=== PATIENT | male | born 1960 | race Caucasian/White ===

== ENCOUNTER → 2020-03-28 15:39 | Outpatient (CLI) | payer SELFPAY ==
--- NOTE | ~2020-03-28 | US_ITS ---
EXAMINATION: US renal BI EXAM DATE: 03/28/2020 16:23 INDICATION: Proteinuria. TECHNIQUE: Multiple grayscale and Doppler images of the kidneys were obtained (by a technologist who performed the scan) and subsequently reviewed. There is no prior study for comparison. FINDINGS: Right kidney: There is normal contour and echogenicity. It measures 10.0 x 5.9 x 6.7 centimeters. T here are no focal renal lesions identified. There is no hydronephrosis. Left kidney: There is normal contour and echogenicity. It measures 11.1 x 6.3 x 5.0 centimeters. Th ere are no focal renal lesions identified. There is no hydronephrosis. Bladder unremarkable. IMPRESSION: Sonographically unremarkable kidneys. Reviewed, dictated and finalized at location B. RACT ADMINISTRATION COORDINATOR
== END ==
DX: I12.9 Hypertensive chronic kidney disease with stage 1 through stage 4 chronic kidney disease, or unspecified chronic kidney disease (principal); N18.31 Chronic kidney disease, stage 3a; R80.9 Proteinuria, unspecified; N20.0 Calculus of kidney
CPT/HCPCS: 76775

== ENCOUNTER 2020-07-31 07:51 | Outpatient (CLI) | payer SELFPAY ==
--- NOTE | 2020-07-31 08:00 | ECG_ITS ---
Measurements Intervals [place] Rate: 53 P: 26 MN: 194 QRS: -13 QRSD: 122 T: -3 QT: 398 QTc: 376 Interpretive Statements SINUS BRADYCARDIA INTRAVENTRICULAR CONDUCTION DELAY VOLTAGE CRITERIA FOR LVH BORDERLINE R WAVE PROGRESSION, ANTERIOR LEADS BORDERLINE T WAVE ABNORMALITY- INFERIOR LEADS BORDERLINE ECG Electronically Signed On 07-31-2020 8:23:12 CDT by [place] D.O.
== END 2020-07-31 07:52 | disposition home or self-care (01) ==
LOC: ANHSURGERY 07:55
PROVIDERS: PCP Internal Medicine Endocrinology, Diabetes & Metabolism; Visit Provider Orthopaedic Surgery
DX: Z01.818 Encounter for other preprocedural examination (principal); I10 Essential (primary) hypertension; I45.9 Conduction disorder, unspecified
CPT/HCPCS: 93005

== ENCOUNTER → 2020-08-02 08:12 | Outpatient (CLI) | payer OTHER, SELFPAY ==
[2020-08-02 19:22] LABS: SARS-CoV-2 RNA PCR Negative
== END ==
PROVIDERS: PCP Internal Medicine Endocrinology, Diabetes & Metabolism; Visit Provider Orthopaedic Surgery
DX: Z01.812 Encounter for preprocedural laboratory examination (principal); Z20.822 Contact with and (suspected) exposure to COVID-19
CPT/HCPCS: C9803; U0003; U0005

== ENCOUNTER 2020-08-05 00:35 | Day surgery (SDC) | payer SELFPAY ==
[2020-07-24 09:51] VITALS: BMI 29.0
[2020-08-05] VITALS (9 sets, daily range): BP systolic 140–186; BP diastolic 74–103; PULSE 47–92; RESP 16–21; TEMP 36.3–37.4; O2SAT 95–100
[2020-08-05] MEDS: LACTATED RINGERS 1,000 ML 30 ML IV CONT ×2 (09:26→11:53)
[2020-08-05] MEDS: ACETAMINOPHEN 500 MG TABLET 1000 MG PO (09:27)
[2020-08-05] MEDS: KETOROLAC 15 MG/ML VIAL (*BKC) IV PUSH (09:29)
--- NOTE | 2020-08-05 09:30 | P.PNAN_ITS ---
Anes - Initial Pre Proc Eval Procedure: Operation Date: 08/05/20 10:30 Proposed Procedures p Left Rotator Cuff Repair with Distal Clavicle Excision - Missael Al MD Date/Time: 08/05/20 09:30 Surgeon: Missael Al MD Pre Op Diagnosis: left rotator cuff pain and AC arthritis Patient Data Age: 59 Gender: M Height: 1.7 m Weight: 84.1 kg Last Vital Signs Temp 36.3 C L 08/05/20 08:57 Pulse 47 L 08/05/20 08:57 Resp 16 08/05/20 08:57 BP 157/76 H 08/05/20 08:57 Pulse Ox 100 08/05/20 08:57 Allergies Allergy/AdvReac Type Severity Reaction Status Date / Time No Known Allergies Allergy Verified 08/05/20 09:04 Home Medications Medication Instructions Recorded Confirmed Type amlodipine 10 mg-benazepril 40 mg 1 cap PO DAILY 07/23/20 08/05/20 History capsule metoprolol succinate 50 mg 50 mg PO DAILY 07/23/20 08/05/20 History tablet,extended release 24 hr Adults Multivitamin 1 tab-cap PO DAILY 07/24/20 08/05/20 History Patient hx anesthesia problems: none Family hx anesthesia problems: none PMFSH Past Medical History Medical History Arthritis of left acromioclavicular joint Gout Hypertension Left rotator cuff tear Surgical History Surgical History (Updated 08/05/20 @ 08:12 by Nikita Wei DO) History of appendectomy History of hand surgery 2013 excision lesion right index finger History of left tennis elbow 2010 debridement History of lithotripsy S/P arthroscopy of right shoulder open DCE 2013 Family History Family History Father Diabetes mellitus Mother Kidney disease Social History Social History Smoking status: Never smoker Alcohol intake: never Living arrangements: with family Additional living arrangements comments: Additional occupation/education comments: Self/[employer] Gender identity (if verbalized by the patient): Male Spiritual care concerns: No Anes - Eval Final PreProcedure Day of Procedure 08/05/20 09:30 Patient weight: overweight Heart: regular rate and rhythm Lungs: clear to auscultation and normal air movement Airway: Mallampati scale class III Neurological: alert and oriented Last oral intake: >/= 8 hours ASA classification: II Emergent: no Anesthetic plan: proceed Anesthesia type and monitoring: general ETT and standard monitoring Informed Consent: The patient's anesthetic plan and its attendant risks and benefits were discussed with the patient/family/POA. Questions were solicited and answers provided to the satisfaction of the patient/family/POA.
--- NOTE | 2020-08-05 09:36 | PM.PROC ---
Procedure Note - Detailed Date of procedure: 08/05/20 Pre-op diagnosis: left rotator cuff pain and AC arthritis Left rotator cuff tear with AC joint arthritis Post-op diagnosis: same Procedure performed: Left shoulder rotator cuff repair with distal clavicle excision Description of procedure: Patient was identified and proper site identified. In the preop holding area the anesthesia team performed a left upper extremity block. He was then taken to the operating room and transferred to the or table taking care to pad the torso and extremities. After general anesthetic induction and intubation, he was put in a semi beach chair position in the usual manner for a left shoulder procedure. His head was secured taking care to neither rotate nor extend the head and neck. The left upper extremity was prepped and draped free in usual sterile fashion. The subcutaneous tissue in the area of the incision was injected with 10 cc of 0.25% Marcaine and epinephrine solution. An oblique anterior incision was made extending from the AC joint distally in line with the fibers of the deltoid. Subcutaneous tissue was sharply dissected down to the deltoid fascia. The deltoid was dissected off the anterior portion of the acromion in the distal end of the clavicle. A 2 cm split was made at the junction between the anterior and middle thirds of the deltoid. Using the microsagittal saw the last 8 mm of clavicle removed. The saw was also used to perform the acromioplasty and then the undersurface of the acromion was rasped smooth. Thickened bursa was debrided off the rotator cuff. The anterior most portion of the supraspinatus was extremely thin. This was released from the tuberosity, the tuberosity prepared for the repair and then through a bone tunnel the rotator cuff was repaired back to the greater tuberosity with 2. Ethibond suture. This gave a freire repair which was stable as the shoulder was taken through range of motion. The wound was irrigated with sterile NaCl solution. The deltoid was repaired back to the acromion with 2. Ethibond suture passed through bone and the remainder of the deltoid repair carried out with 2. Vicryl. Subcutaneous tissue was reapproximated with 2. Strata fix and then tissue adhesive used for the skin. Sterile dressing was applied. There were no known intraoperative complications, and perioperative antibiotics were administered. Anesthesia: GETA and regional Surgeon: Missael Al MD [facility] Owner: Julissa Holguin Estimated blood loss (mL): 20 Drains: No Packing: No Pathology: none sent Complications: No immediate complications Condition: stable Disposition: PACU
--- NOTE | 2020-08-05 09:37 | WPDHPUPDATE1 ---
History and Physical Update Update Date/Time: 08/05/20 09:37 History and Physical has been reviewed, including an updated exam of the patient. There are NO changes in the patient's condition. Risks, benefits, and alternatives have been discussed and questions answered. Patient agrees to proceed with procedure.
--- NOTE | 2020-08-05 09:48 | WPDANESPNB ---
Anes - Peripheral Nerve Block Date/Time: 08/05/20 09:48 I have discussed with the patient/family/POA the placement of a peripheral nerve block for post-operative pain management, including associated risks, benefits, complications, and side effects. Alternative methods of post-operative analgesia were detailed. Questions were solicited and answers provided to the satisfaction of the patient/family/POA. Time-Out: A pre-procedural Time-Out was completed immediately before starting the procedure and confirmed: Patient Identification, Site, Procedure, Patient Position and the Availability of Requisite Equipment. Clinical Indications: Acute post-operative pain management requested by the operative surgeon. Nerve Block Insertion Note Anes-nerve block: interscalene left Patient position: supine Skin prep: chlorhexidine Needle: 22 gauge, stimulating, insulated echogenic needle. Needle length: 50 mm Technique: ultrasound Injectate: bupivacaine 0.5% with epi 5 mcg/ml (30cc- no epi) Observations: tolerated well Complications: none Procedure start time:: 1025 Procedure end time:: 102
[2020-08-05] MEDS: ceFAZolin 2 GM/D5W 50 ML 2 GM/50 ML BAG IVPB (10:31)
[2020-08-05] MEDS: BUPIVACAINE/EPINEPHRINE 0.25% 10 ML VIAL INFILTRATE (11:03)
== END 2020-08-05 13:40 | disposition home or self-care (01) ==
PROVIDERS: PCP Internal Medicine Endocrinology, Diabetes & Metabolism; Visit Provider Orthopaedic Surgery
PROC: (CPT 23420; principal; 2020-08-05 10:30)
DX: M75.112 Incomplete rotator cuff tear or rupture of left shoulder, not specified as traumatic (principal); M19.012 Primary osteoarthritis, left shoulder; G89.18 Other acute postprocedural pain; I10 Essential (primary) hypertension
CPT/HCPCS: 23420; 23120; 64415; A4565; A9270; J0330; J0690; J1100; J1885; J2250; J2405; J2704; J3010; J7120

== ENCOUNTER 2020-11-01 08:30 | Outpatient (RCR) | payer SELFPAY ==
[2020-08-07 07:33] VITALS: BP_SYST 35
--- NOTE | 2020-08-07 08:39 | PTOPEVAL ---
Thank you for referring Pola Leyva to [facility].? The patient is scheduled to be seen for therapy? 1-2 x/week for 12 weeks. Please review, sign, date and return this plan of care POLLO. I agree with and certify that the following plan of care is medically necessary. 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 Family He reports limitations with all daily activities, ADL's, and use of left UE. Reports difficulty sleeping due to pain. Sleeping in the recliner. He requires assistance with ADL's. He is not driving. Recreational activities: ride motorcycles, play with grandkids. Previous Treatments Previous Treatments For This Problem no Pain Assessment Self Report Pain Assessment Left Shoulder(s) Reported Pain Level 4 Pain Description Aching,Incisional,Soreness Pain Frequency Acute,Continuous Lowest Pain Intensity 3 Greatest Pain Intensity 7 Pain Aggravating Factors ADL's,Exercise/Activity, Lifting Pain Behaviors None Upper Extremity Range of Motion General Upper Extremity Range of Motion Gross Upper Extremity Range of Motion left elbow ROM: WNL Comments Scapular/ Shoulder Range of Motion Left Shoulder Flexion - Passive 70 Shoulder Extension - Passive 0 Shoulder Abduction - Passive 35 Shoulder Medial Rotation - Passive 30 Shoulder Lateral Rotation - Passive 0 Scapular/Shoulder Range of Motion Pain,Soft Tissue Restriction Scapular/Shoulder Range of Motion rotation measured with UE at side Upper Extremity Muscle Strength Testing Gross Upper Extremity Strength Comments left shoulder NT due to surgery left elbow: 3/5 Scapular/Shoulder Left Scapular Retraction - Rhomboid 3- Fair - Scapular Retraction - Middle Trapezius 3- Fair - Muscle Length Testing Pectoralis Major Muscle Length (R) Moderate Tightness,(L) Moderate Tightness Pectoralis Minor Muscle Length (R) Severe Tightness,(L) Severe Tightness Posture Sitting Position Head/C-Spine Posture
[2020-09-10 07:35] VITALS: BP_SYST 140
--- NOTE | 2020-09-24 08:37 | PCPTNOTE ---
Patient called & cancelled scheduled appointment this date due to having to work.
--- NOTE | 2020-10-01 15:20 | PCPTNOTE ---
Patient called & cancelled scheduled appointment this date due to having to work.
--- NOTE | 2020-10-22 07:36 | PCPTNOTE ---
Patient called & cancelled scheduled appointment this date due to called into work.
[2020-11-01 08:25] VITALS: BP_SYST 130
--- NOTE | 2020-11-01 09:42 | PTOPEVAL ---
Progress Note Thank you for referring Pola Leyva to [facility].? He has attended 12 therapy visits with 3 cancelled visits with last visit on 10/08/20 due to his schedule. See summary below for progress and limitations. He requires additional skilled therapy services to address limitations. The patient is scheduled to be seen for therapy? 2x/week for 3 weeks. Please review, sign, date and return this plan of care POLLO. I agree with and certify that the following plan of care is medically necessary. 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 Family He is working without limitations. He cont to have trouble reaching behind his back. He is performing his HEP inconsistently 1x/day. Denies problems with lifting or reaching overhead. Pain Assessment Left Shoulder(s) Reported Pain Level 0 Pain Description Aching Pain Frequency Intermittent Lowest Pain Intensity 0 Greatest Pain Intensity 3 Upper Extremity Range of Motion Scapular/ Shoulder Range of Motion Left Scapular: Retraction Hypomobile Scapular: Protraction Hypomobile Scapular Downward Rotation Hypomobile Scapular Upward Rotation Hypomobile Shoulder Flexion - Active 128 Shoulder Flexion - Passive 140 Shoulder Extension - Active 45 Shoulder Abduction - Active 115 Shoulder Abduction - Passive 130 Shoulder Medial Rotation - Active 22 Shoulder Medial Rotation - Active iliac crest:Reach Behind the Back Shoulder Lateral Rotation - Active 45 Shoulder Lateral Rotation - Active C3:Reach Behind the Head Scapular/Shoulder Range of Motion Muscle Length Restriction,Pain Limitations ,Soft Tissue Restriction Scapular/Shoulder Range of Motion rotation measured with UE Comments abducted 75 dg poor GH inf glide, poor scapulothoracic movement with reaching task Upper Extremity Muscle Strength Testing Scapular/Shoulder Left Scapular Retraction - Middle Trapezius 3+ Fair + Scapular Retraction - Lower Trapezius 3 Fair Shoulder Flexion Strength 3+ Fair + Shoulder Extension Strength 4+ Good +
--- NOTE | 2020-11-04 14:04 | PCPTNOTE ---
This treatment is being continued on visit number 13 to new [id number]. Please see documentation on both accounts to view progress. Completed interventions, outcomes, and problems have been marked as Inactive to facilitate the copying of the Care plan routine for recurring accounts.
== END 2020-11-04 13:07 | disposition home or self-care (01) ==
LOC: ANHPT 08:30
PROVIDERS: PCP Internal Medicine Endocrinology, Diabetes & Metabolism; Visit Provider Orthopaedic Surgery
DX: Z48.89 Encounter for other specified surgical aftercare (principal)
CPT/HCPCS: 97014; 97035; 97110; 97140; 97161; G0283

== ENCOUNTER 2020-11-08 15:00 | Outpatient (RCR) | payer SELFPAY ==
[2020-11-04 13:08] VITALS: BP_SYST 130
--- NOTE | 2020-11-04 14:04 | PCPTNOTE ---
The treatment documented on this account is a continuation of the treatment documented on visit number 13 from [id number]. Please see documentation on both accounts to view progress. The Plan of Care has been transitioned and updated within the new V#. I have addressed and agree with the discipline specific Problems, Interventions, and Goals for the current certification period. Completed interventions, outcomes, and problems have been marked as Inactive to facilitate the copying of the Care plan routine for recurring accounts.
--- NOTE | 2020-11-21 08:58 | PCPTNOTE ---
Spoke with pt who had a f/u MD visit. MD recommended DC PT and cont with HEP. Will plan to DC skilled therapy services at this time.
--- NOTE | 2020-11-21 12:51 | PCPTNOTE ---
Admitting Provider: Attending Provider: Missael Al MD Patient:Pola Leyva Date of :1960 Discharge Note Patient has not returned for any further treatments since 11/08/2020. He called therapy to request to be discharged from therapy services at this time after speaking with his doctor. He received 14 therapy visits to address UE limitations related to his shoulder surgery. At last update he continued to demonstrate decreased shoulder motion and shoulder weakness. He is indep with his HEP at this time. The goals have been partially met at this time. Will plan to DC skilled therapy services at this time. Thank you for referring this patient to [facility]. Please review, sign, date and return this discharge summary POLLO. I have been updated about the patient's current status and I agree with discharge from the above service at this time. Referring Physician Date
== END 2021-01-21 14:19 | disposition home or self-care (01) ==
LOC: ANHPT 15:00
PROVIDERS: PCP Internal Medicine Endocrinology, Diabetes & Metabolism; Visit Provider Orthopaedic Surgery
DX: Z48.89 Encounter for other specified surgical aftercare (principal); Z98.890 Other specified postprocedural states
CPT/HCPCS: 97035; 97110; 97140

== ENCOUNTER → 2020-11-30 08:54 | Outpatient (CLI) | payer SELFPAY ==
--- NOTE | ~2020-11-30 | XR_ITS ---
XR chest 2V DATE: 11/30/2020 09:39 INDICATION: Hypercalcemia TECHNIQUE: PA and lateral views COMPARISON: 02/24/2013 two-view chest FINDINGS: There is moderate elevation of the right leaf of the diaphragm. Heart size is within normal limits. No hilar or mediastinal enlargement. No pulmonary infiltrate or consolidation, pleural effus ion or pulmonary vascular congestion or pneumothorax is detected. IMPRESSION: Moderate elevation of right diaphragm No active cardiopulmonary disease or significant change since 02/24/2013 Reviewed, dictated and finalized at location A.
== END ==
DX: E83.52 Hypercalcemia (principal)
CPT/HCPCS: 71046

== ENCOUNTER 2021-03-11 16:56 | Emergency (ER) | payer SELFPAY ==
--- NOTE | ~2021-03-11 | XR_ITS ---
EXAMINATION: XR finger 4th RT min 2V INDICATION: Right fifth finger pain TECHNIQUE: Four views of the right fifth finger are obtained. COMPARISON: 12/05/2011 FINDINGS: There is soft tissue swelling of the right fifth finger. No displaced fracture is identifie d. The joint spaces are maintained. IMPRESSION: 1. Soft tissue swelling of the fifth finger without displaced fracture identified. Reviewed, dictated and finalized at location F. TER BOTTOM IMPRESSION: 1. Soft tissue swelling of the fifth finger without displaced fracture identifi ed.
--- NOTE | 2021-03-11 17:05 | ED.UPPEXIN ---
HPI - Extremity Injury (Upper) General Chief Complaint: Extremity Injury, Upper Stated Complaint: Pinky Rt Hand Pain Time Seen by Provider: 03/11/21 17:05 Source: patient and RN notes reviewed History of Present Illness HPI narrative: Patient is 60-year-old male who presents the urgent care with complaints of an injury to the right pinky finger. Patient states that he caught it in a rail scissor left last . Patient is currently denying of any pain and has not taken anything [id number] for his symptoms. No other acute complaints. No acute distress noted. Patient read the plan of care. Some parts of this dictation were generated by voice recognition software and may contain typographical and/or grammatical inaccuracies. Related Data Home Medications Medication Instructions Recorded Confirmed amlodipine [Norvasc] 10 mg PO DAILY 03/11/21 03/11/21 lisinopril [Zestril] 20 mg PO DAILY 03/11/21 03/11/21 metoprolol succinate 50 mg PO DAILY 03/11/21 03/11/21 torsemide 10 mg DAILY 03/11/21 03/11/21 Allergies Allergy/AdvReac Type Severity Reaction Status Date / Time No Known Allergies Allergy Verified 03/11/21 17:28 Review of Systems Review of Systems: CONSTITUTIONAL: Denies fever, chills, or sweats. EYES: Denies visual changes, redness, or discharge. ENT: Denies rhinorrhea, congestion, sore throat, or otalgia. CARDIOVASCULAR: Denies chest pain, palpitations, or edema. RESPIRATORY: Denies cough or dyspnea. GASTROINTESTINAL: Denies abdominal pain, nausea, vomiting, or diarrhea. GENITOURINARY: Denies dysuria or hematuria. SKIN: Denies rash or itching. MUSCULOSKELETAL: Reports of swelling to the right pinky finger NEUROLOGIC: Denies headache, numbness, or weakness. All other systems reviewed are negative, except as documented in HPI. [facility] Past Medical History Medical History Gout Hypertension Surgical History Surgical History History of appendectomy History of hand surgery 2012 excision lesion right index finger History of left tennis elbow 2010 debridement History of lithotripsy Left rotator cuff tear Left rotator cuff repair with distal clavicle excision August 05, 2020 S/P arthroscopy of right shoulder open DCE 2013 Family History Family History Father Diabetes mellitus Mother Kidney disease Social History Social History Smoking status: Never smoker Alcohol intake: never Additional living arrangements comments: Additional occupation/education comments: Self/[employer] Gender identity (if verbalized by the patient): Male Spiritual care concerns: No Comments At the time of my signature, I reviewed and agree with the nursing past medical, surgical, social, and family history. There is no relevant family history pertinent to the patient complaint. Exam Narrative: GENERAL: This is a well-nourished, well-developed patient, in no apparent distress. HEAD: normocephalic, atraumatic. EYES: PERRL. Sclera clear/white. Vision is grossly intact. EARS: External ears normal NOSE: External nose normal with no obvious nasal discharge, nares without redness, no rhinorrhea. THROAT: Mucous membranes moist NECK: Neck supple CARDIOVASCULAR: Regular rate and rhythm without murmurs, gallops, or rubs. RESPIRATORY: Clear to auscultation. Breath sounds equal bilaterally. No wheezes, rales, or rhonchi. SKIN: warm, intact with no suspicious lesions or rash, good texture and turgor. NEURO: awake, alert, and oriented to person, place and time. There were no obvious focal neurologic abnormalities. EXTREMITIES: Mild localized edema/erythema to the DIP of the right pinky finger with mild tenderness. No obvious deformity. Positive strong right radial pulse with capillary refill
[2021-03-11 17:08] VITALS: BP 145/79; PULSE 77; RESP 18; TEMP 36.9; O2SAT 96
== END 2021-03-11 17:40 | disposition home or self-care (01) ==
PROVIDERS: Emergency Provider Nurse Practitioner Family; PCP Internal Medicine Endocrinology, Diabetes & Metabolism
DX: S69.91XA Unspecified injury of right wrist, hand and finger(s), initial encounter (principal); X58.XXXA Exposure to other specified factors, initial encounter; M10.9 Gout, unspecified; I10 Essential (primary) hypertension
CPT/HCPCS: 73140; 99213; G0463

== ENCOUNTER 2023-02-09 11:32 | Outpatient (CLI) | payer SELFPAY ==
[2023-02-09 13:50] LABS: Iron 133 ug/dL (49-181)
[2023-02-09 14:02] LABS: Percent Iron Saturation 49 % (20-50)
[2023-02-09 14:11] LABS: Alanine Aminotransferase 44 U/L (6-50); Albumin Level 4.6 g/dL (3.5-5.1); Alkaline Phosphatase 95 U/L (38-126); Anion Gap 13 mmol/L (8-16); Aspartate Amino Transferase 34 U/L (17-59); Bilirubin,Total 0.9 mg/dL (0.2-1.3); Blood Urea Nitrogen 24 mg/dL (9-20); CRP 1.2 mg/dL (<1.0); Calcium 9.5 mg/dL (8.4-10.2); Carbon Dioxide 25 mmol/L (22-30); Chloride 100 mmol/L (98-107); Estimated Glomerular Filt Rate 51; Glucose 159 mg/dL (65-110); Potassium 5.1 mmol/L (3.4-5.0); Sodium 138 mmol/L (137-145)
== END 2023-02-09 11:33 | disposition home or self-care (01) ==
PROVIDERS: PCP Internal Medicine Endocrinology, Diabetes & Metabolism; Visit Provider Internal Medicine Hematology & Oncology
DX: E83.19 Other disorders of iron metabolism (principal)
CPT/HCPCS: 36415; 80053; 82728; 83540; 83550; 86140

== ENCOUNTER 2023-02-12 13:38 | Outpatient (CLI) | payer SELFPAY ==
[2023-02-12 13:46] LABS: Basophils Percent Auto 0.5 % (0.2-1.2); Eosinophils Absolute Auto 0.1 K/mm3 (0-0.3); Eosinophils Percent Auto 0.7 % (0-4.4); Hematocrit 57.5 % (42.0-52.0); Hemoglobin 19.3 g/dL (14.0-18.0); Immature Granulocyte Absolute 0.03 K/mm3 (0.00-0.031); Immature Granulocyte Percent A 0.4 % (0-0.5); Lymphocytes Absolute Auto 1.88 K/mm3 (0.9-3.2); Lymphocytes Percent Auto 22.1 % (18.3-44.2); Mean Corpuscular HGB Conc 33.6 g/dl (32-36); Mean Corpuscular Hemoglobin 31.2 pg (26-34); Mean Platelet Volume 11.4 fl (7.4-10.4); Monocytes Absolute Auto 0.9 K/mm3 (0.1-0.6); Monocytes Percent Auto 11.1 % (2.6-8.5); Neutrophils Absolute Auto 5.6 K/mm3 (1.3-6.7); Neutrophils Percent Auto 65.2 % (45.5-73.1); Platelet Count Result 267 k/mm3 (150-375); Red Blood Count 6.18 M/mm3 (4.6-6.20); Red Cell Distribution Width 12.8 % (11.5-14.5); White Blood Count 8.5 K/mm3 (4.5-10.0)
[2023-02-12 15:57] LABS: Erythrocyte Sedimentation Rate 2 mm/hr (0-20)
== END 2023-02-12 13:39 | disposition home or self-care (01) ==
LOC: ANHLAB 13:39
PROVIDERS: PCP Internal Medicine Endocrinology, Diabetes & Metabolism; Visit Provider Internal Medicine Hematology & Oncology
DX: E83.19 Other disorders of iron metabolism (principal)
CPT/HCPCS: 36415; 81256; 85025; 85652

== ENCOUNTER 2023-02-23 12:10 | Outpatient (CLI) | payer SELFPAY ==
[2023-02-23 12:41] LABS: Basophils Absolute Auto 0.1 K/mm3 (0.0-0.1); Eosinophils Absolute Auto 0.1 K/mm3 (0-0.3); Hematocrit 59.7 % (42.0-52.0); Hemoglobin 20.1 g/dL (14.0-18.0); Immature Granulocyte Absolute 0.02 K/mm3 (0.00-0.031); Immature Granulocyte Percent A 0.3 % (0-0.5); Lymphocytes Absolute Auto 1.74 K/mm3 (0.9-3.2); Lymphocytes Percent Auto 24.8 % (18.3-44.2); Mean Corpuscular HGB Conc 33.7 g/dl (32-36); Mean Corpuscular Hemoglobin 31.1 pg (26-34); Mean Corpuscular Volume 92.4 fl (80-100); Mean Platelet Volume 11.2 fl (7.4-10.4); Monocytes Absolute Auto 0.8 K/mm3 (0.1-0.6); Neutrophils Absolute Auto 4.3 K/mm3 (1.3-6.7); Neutrophils Percent Auto 60.9 % (45.5-73.1); Platelet Count Result 238 k/mm3 (150-375); Red Blood Count 6.46 M/mm3 (4.6-6.20); Red Cell Distribution Width 12.8 % (11.5-14.5)
[2023-02-23 16:32] LABS: Iron 86 ug/dL (49-181)
[2023-02-23 16:42] LABS: Percent Iron Saturation 30 % (20-50)
[2023-02-27 18:10] LABS: Testosterone Free 180.5 pg/mL (35.0-155.0); Testosterone Total 940 ng/dL (250-1100)
[2023-03-01 13:28] LABS: Block/Specimen ID Not Given; CALR Exon 9 Mutation Not Detected (Not Detected); CSF3R Exon 14/17 Mutation Not Detected (Not Detected); JAK2 Exon 12 Mutation Not Detected (Not Detected); JAK2 V617F Mutation Not Detected (Not Detected); MPL Exon 10 Mutation Not Detected (Not Detected); Specimen Source Blood
== END 2023-02-23 12:11 | disposition home or self-care (01) ==
PROVIDERS: PCP Internal Medicine Endocrinology, Diabetes & Metabolism; Visit Provider Internal Medicine Hematology & Oncology
DX: E83.19 Other disorders of iron metabolism (principal); D45 Polycythemia vera; E34.9 Endocrine disorder, unspecified
CPT/HCPCS: 36415; 81219; 81270; 81279; 81339; 81479; 82728; 83540; 83550; 84402; 84403; 85025

== ENCOUNTER 2023-08-23 10:48 | Outpatient (CLI) | payer SELFPAY ==
[2023-08-23 11:06] LABS: Basophils Absolute Auto 0.1 K/mm3 (0.0-0.1); Eosinophils Absolute Auto 0.2 K/mm3 (0-0.3); Eosinophils Percent Auto 3.1 % (0-4.4); Hematocrit 46.5 % (42.0-52.0); Hemoglobin 15.8 g/dL (14.0-18.0); Immature Granulocyte Absolute 0.04 K/mm3 (0.00-0.031); Immature Granulocyte Percent A 0.6 % (0-0.5); Lymphocytes Absolute Auto 2.03 K/mm3 (0.9-3.2); Lymphocytes Percent Auto 28.4 % (18.3-44.2); Mean Corpuscular Hemoglobin 31.3 pg (26-34); Mean Corpuscular Volume 92.1 fl (80-100); Mean Platelet Volume 11.6 fl (7.4-10.4); Monocytes Absolute Auto 0.7 K/mm3 (0.1-0.6); Monocytes Percent Auto 10.3 % (2.6-8.5); Neutrophils Absolute Auto 4.1 K/mm3 (1.3-6.7); Neutrophils Percent Auto 56.6 % (45.5-73.1); Platelet Count Result 234 k/mm3 (150-375); Red Blood Count 5.05 M/mm3 (4.6-6.20); White Blood Count 7.2 K/mm3 (4.5-10.0)
[2023-08-23 13:21] LABS: Iron 93 ug/dL (49-181)
[2023-08-23 13:32] LABS: Percent Iron Saturation 34 % (20-50)
== END 2023-08-23 10:49 | disposition home or self-care (01) ==
PROVIDERS: Visit Provider Internal Medicine Hematology & Oncology
DX: E83.19 Other disorders of iron metabolism (principal)
CPT/HCPCS: 36415; 82728; 83540; 83550; 85025